=== PATIENT | female | born 1930 | race Caucasian/White ===

== ENCOUNTER → 2016-07-24 | Outpatient (CLI) | payer OTHER ==
--- NOTE | 2016-07-24 18:10 | DX ---
PA and Lateral Chest July 24, 2016 Clinical Indications: Wheezing and respiratory difficulty and an 86-year-old female. Comparison: October 25, 2013. Findings: No focal pulmonary consolidation is identified. Minimal basilar opacities bilaterally are probably atelectasis or scarring. There is hyperexpansion seen, with flattening of the hemidiaphrag ms noted. The heart size and pulmonary vascularity are normal. Pleural surfaces and bony thorax are negative for acute abnormality. Aortic tortuosity is seen, which could reflect arterial hypertensio n. Impressions 1. Suspect basilar atelectasis. 2. Hyperexpansion suggests airways disease/COPD. 3. See above report for additional findings.
== END ==
LOC: CIMAGING 13:07
PROVIDERS: ATTEND Family Medicine
DX: J98.4 Other disorders of lung (principal)
CPT/HCPCS: 71020-PO

== ENCOUNTER → 2017-10-20 | Outpatient (CLI) | payer OTHER | LOC: CIMAGING 15:08 | PROVIDERS: ATTEND Family Medicine | DX: S23.429A Unspecified sprain of sternum, initial encounter (principal); W19.XXXA Unspecified fall, initial encounter | CPT/HCPCS: 71120-PO ==

== ENCOUNTER 2017-10-22 18:45 | Emergency (ER) | payer OTHER ==
[2017-10-22] MEDS ORDERED: NS 1,000 ML IV ONE (18:58)
--- NOTE | 2017-10-22 19:02 | EDPHY ---
H & P Time Seen by Provider: 10/22/17 18:52 HPI/ROS: CHIEF COMPLAINT: Fever, lightheaded, high blood pressure HISTORY OF PRESENT ILLNESS: The patient is an 87-year-old female with a history of hypertension, arthritis and hypothyroidism who was seen by her primary yesterday and had a normal chest x-ray because she had fallen onto her chest 2 weeks ago and had continued moderate chest wall pain. Today she felt chills and noticed a fever of 100.4 at home. She also noticed that her blood pressure was 180/100 and that she felt slightly lightheaded. Her chest pain has remained the same mostly with movement or deep inspiration. No leg swelling. Here in the ER she is also tachycardic. She denies any cardiac or pulmonary history. Here she is afebrile. REVIEW OF SYSTEMS: Constitutional: denies: chills, fever, recent illness, recent injury EENTM: denies: blurred vision, double vision, nose congestion Respiratory: denies: cough, shortness of breath Cardiac: denies: chest pain, irregular heart rate, lightheadedness, palpitations Gastrointestinal/Abdominal: denies: abdominal pain, diarrhea, nausea, vomiting, blood streaked stools Genitourinary: denies: dysuria, frequency, hematuria, pain Musculoskeletal: denies: joint pain, muscle pain Skin: denies: lesions, rash, jaundice, bruising Neurological: denies: headache, numbness, paresthesia, tingling, dizziness, weakness Hematologic/Lymphatic: denies: blood clots, easy bleeding, easy bruising Immunologic/allergic: denies: HIV/AIDS, transplant EXAM: GENERAL: Well-appearing, well-nourished and in no acute distress. HEAD: Atraumatic, normocephalic. EYES: Pupils equal round and reactive to light, extraocular movements intact, sclera anicteric, conjunctiva are normal. ENT: TMs normal, nares patent, oropharynx clear without exudates. Moist mucous membranes. NECK: Normal range of motion, supple without lymphadenopathy or JVD. LUNGS: Breath sounds clear to auscultation bilaterally and equal. No wheezes rales or rhonchi. HEART: Tachycardic without murmurs, rubs or gallops. ABDOMEN: Soft, nontender, normoactive bowel sounds. No guarding, no rebound. No masses appreciated. BACK: No CVA tenderness, no spinal tenderness, step-offs or deformities EXTREMITIES: Normal range of motion, no pitting or edema. No clubbing or cyanosis. NEUROLOGICAL: Cranial nerves II through XII grossly intact. Normal speech, normal gait. 5/5 strength, normal movement in all extremities, normal sensation PSYCH: Normal mood, normal affect. SKIN: Warm, dry, normal turgor, no visible rashes or lesions. Source: Patient Exam Limitations: No limitations - Medical/Surgical History Hx Asthma: No Hx Chronic Respiratory Disease: No Hx Diabetes: No Hx Cardiac Disease: No Hx Renal Disease: No Hx Cirrhosis: No Hx Alcoholism: No Hx HIV/AIDS: No Hx Splenectomy or Spleen Trauma: No Other PMH: HTN, thyroidectomy - Family History Significant Family History: No pertinent family hx - Social History Smoking Status: Former smoker Alcohol Use: Sober Drug Use: None Constitutional: Initial Vital Signs Temperature (C) 37.1 C 10/22/17 19:25 Heart Rate 108 H 10/22/17 19:25 Respiratory Rate 18 10/22/17 19:25 Blood Pressure 198/102 H 10/22/17 19:25 O2 Sat (%) 93 10/22/17 19:25 O2 Delivery Mode Room Air Allergies/Adverse Reactions: No Known Allergies Allergy (Verified 10/22/17 19:23) Home Medications: Medication Instructions Recorded Levothyroxine 05/19/10 Lipitor 10 mg 05/19/10 Lisinopril 05/19/10 Cephalexin [Keflex] 500 mg PO TID #21 cap 10/22/17 Medical Decision Making - Diagnostics EKG Interpretation: An EKG obtained and was read and documented in trace view. Please see trace view for full reading and report. Sinus rhythm, no acute ischemic changes Imaging: Discussed imaging studies w/ radiation protection technician Radiologist ED Course/Re-evaluation: Patient's lab work and imaging are reassuring. She is currently asymptomatic other than states that she had to urinate immediately. Urine sample is pending. She has been afebrile here in the department. I rechecked it now is 37.0. She is tachycardic when I went into the room but her states that she has been sitting around 90 most of her stay. Also her blood pressure had improved temporarily but is now backed up to 220/100. I will treat her with her home medicine 5 mg lisinopril and additionally clonidine. No headache, no chest pain. 10:00 p.m. the patient's blood pressure is improved significantly is now 170/ 80. Heart rate is also improved at 100. Her fevers starting to return and is 37.5. She has been to the bathroom 3 times here in the department. She denies dysuria. Considering her fever at home and urinary frequency will start her on Keflex. 10:20 p.m. the patient is feeling well. Her tachycardia is resolved. I encouraged her to continue taking antipyretics and antibiotics and to rest tomorrow. Her states that they have monitoring equipment at home and can bring her back if her symptoms worsen at all. I did offer admission but they decline. Differential Diagnosis: Partial list of the Differential diagnosis considered include but were not limited to; urinary tract infection, pyelonephritis, sepsis, PE and although unlikely based on the history and physical exam, I also considered pneumonia, meningitis, acute coronary disease. I discussed these differential diagnoses and the plan with the patient as well as the usual and expected course. The patient understands that the diagnosis is provisional and that in medicine we are not always correct and that further workup is often warranted. Usual and customary warnings were given. All of the patient's questions were answered. The patient was instructed to return to the emergency department should the symptoms at all worsen or return, otherwise to followup with the physician as we discussed. - Data Points Laboratory Results: Laboratory Results 10/22/17 19:30 10/22/17 19:30 Medications Given: Discontinued Medications Acetaminophen (Tylenol) 650 mg PO EDNOW ONE Stop: 10/22/17 22:00 Last Admin: 10/22/17 22:04 Dose: 650 mg Cephalexin HCl (Keflex) 500 mg PO EDNOW ONE PRN Reason: Protocol Stop: 10/22/17 21:58 Last Admin: 10/22/17 22:05 Dose: 500 mg Clonidine (Catapres) 0.1 mg PO EDNOW ONE Stop: 10/22/17 20:49 Last Admin: 10/22/17 21:11 Dose: 0.1 mg Sodium Chloride (Ns) 1,000 mls @ 0 mls/hr IV EDNOW ONE; Wide Open PRN Reason: Protocol Stop: 10/22/17 18:59 Last Admin: 10/22/17 19:35 Dose: 1,000 mls Lisinopril (Zestril) 5 mg PO DAILY JOCELIN Stop: 04/20/18 20:59 Last Admin: 10/22/17 21:11 Dose: 5 mg Departure - Departure Disposition: Home, Routine, Self-Care Clinical Impression: Urinary tract infection Qualifiers: Urinary tract infection type: acute cystitis Hematuria presence: without hematuria Qualified Code(s): N30.00 - Acute cystitis without hematuria Condition: Fair Instructions: Urinary Tract Infection in Women (ED) Referrals: Phyllis Baer MD [Primary Care Provider] - As per Instructions Prescriptions: Cephalexin [Keflex] 500 mg PO TID #21 cap
--- NOTE | 2017-10-22 19:11 | CPEKG ---
Heart Rate: 97 RR Interval: 619 P-R Interval: 168 QRSD Interval: 84 QT Interval: 348 QTC Interval: 442 P [place]: 56 QRS [place]: -60 T Wave [place]: 30 EKG Severity - ABNORMAL ECG - EKG Impression: SINUS RHYTHM EKG Impression: LEFT ANTERIOR FASCICULAR BLOCK Electronically Signed By: Ismael Prince 22-Oct-2017 19:12:30
[2017-10-22] MEDS ORDERED: IOPAMIDOL (ISOVUE 370) 100 ML BTL IV ONE (19:24)
[2017-10-22 19:39] LABS: PLATELET COUNT 193 10^3/uL (150-400)
[2017-10-22 19:51] LABS: INR 0.99 (0.83-1.16)
[2017-10-22] MEDS ORDERED: LISINOPRIL 20 MG TAB ONE (21:00)
[2017-10-22] MEDS ORDERED: LISINOPRIL 2.5 MG TAB PO SCH (21:00)
[2017-10-22] MEDS ORDERED: CEPHALEXIN 500 MG CAP PO ONE (21:57)
[2017-10-22] MEDS ORDERED: ACETAMINOPHEN 325 MG TAB PO ONE (21:59)
[2017-10-22 22:54] VITALS: BP 152/90
== END 2017-10-22 22:35 | disposition home or self-care (01) ==
LOC: CED 18:45
DX: N30.00 Acute cystitis without hematuria (principal); B96.89 Other specified bacterial agents as the cause of diseases classified elsewhere; I10 Essential (primary) hypertension; E86.9 Volume depletion, unspecified; Z87.891 Personal history of nicotine dependence
CPT/HCPCS: 71275; 93005; 96360; 99285; Q9967; 80048-PO; 81003-PO; 81015-PO; 83605-PO; 84439-PO; 84443-PO; 84484-PO; 85025-PO; 85610-PO; 85730-PO

== ENCOUNTER 2018-06-18 12:22 | Observation (INO) | payer OTHER ==
[2018-06-18 13:15] LABS: PLATELET COUNT 209 10^3/uL (150-400)
--- NOTE | 2018-06-18 13:23 | EDPHY ---
H & P Time Seen by Provider: 06/18/18 12:27 HPI/ROS: CHIEF COMPLAINT: Mechanical fall, scalp laceration HISTORY OF PRESENT ILLNESS: The patient presents to the ED after a mechanical fall. She fell backward landing on the occiput of her head. She sustained a large scalp hematoma and laceration. She was brought in by paramedics for further evaluation. The patient does not believe she is anticoagulated. She denies any antecedent chest pain, palpitations or shortness of breath. She denies any acute numbness or weakness. She does complain of some mild bilateral cervical neck pain. The patient denies any acute extremity complaints. She complains of a moderate had occipital headache. REVIEW OF SYSTEMS: A comprehensive 10 point review of systems is otherwise negative aside from elements mentioned in the history of present illness. Source: Patient Exam Limitations: No limitations - Medical/Surgical History Hx Asthma: No Hx Chronic Respiratory Disease: No Hx Diabetes: No Hx Cardiac Disease: No Hx Renal Disease: No Hx Cirrhosis: No Hx Alcoholism: No Hx HIV/AIDS: No Hx Splenectomy or Spleen Trauma: No Other PMH: HTN, thyroidectomy - Social History Smoking Status: Former smoker - Physical Exam Exam: General Appearance: Alert, no distress Head: Large occipital hematoma with associated laceration Eyes: Pupils equal, round, reactive ENT, Mouth: No hemotympanum, no oral trauma Neck: In cervical collar, mild midline tenderness to palpation with Respiratory: No chest wall tender, no subcutaneous air, lungs clear bilaterally Cardiovascular: Regular rate and rhythm Abdomen: Abdomen is soft and nontender, pelvis stable Skin: No lacerations, No abrasion Back: No midline T/L/S pain Extremities: Nontender, full range of motion Neurological: A&Ox3, normal motor function, normal sensory exam Allergies/Adverse Reactions: No Known Allergies Allergy (Verified 10/22/17 19:23) Home Medications: Medication Instructions Recorded Acetaminophen [Tylenol ES 500 mg 1,000 mg PO BID 06/18/18 (*)] Amitriptyline HCl [Elavil 10 mg 10 mg PO HS 06/18/18 (*)] Atorvastatin Calcium [Lipitor 20 20 mg PO HS 06/18/18 mg (*)] C/E/Zn/Cu/OM3/DHA/EPA/LUT/ZEAX 1 each PO BID 06/18/18 [Preservision Areds 2 Softgel] Ibuprofen [Motrin (*)] 200 mg PO Q6 PRN 06/18/18 Levothyroxine [Synthroid 112 mcg 112 mcg PO DAILY06 06/18/18 (*)] Lisinopril [Lisinopril] 20 mg PO HS 06/18/18 Medical Decision Making - Diagnostics EKG Interpretation: EKG: Complete interpretation has been separately recorded in the [facility] archive. Summary impression: Sinus rhythm, rate 88, no ischemic changes noted Imaging Results: Imaging Impressions Cervical Spine CT 06/18/18 12:31 Impression: 1. There is a superior left posterior parietal subgaleal (deep scalp) hematoma, with no acute intra or extra-axial blood observed. This resides adjacent to a scalp laceration. 2. Moderately advanced senescent features, with no acute intracranial abnormality identified on this unenhanced CT evaluation. 3. There is a 1.2 cm calcification near the left superior vertex, likely representing a small benign meningioma. UNENHANCED CT SCAN OF THE CERVICAL SPINE Technique: A multidetector unenhanced helical CT scan was obtained from the clivus caudally through the upper thoracic spine, with images reformatted at 0.625 mm and 1.25 mm increments, and are reviewed in soft tissue, bone, and lung windows. Parasagittal and paracoronal reconstructed images are reviewed on the workstation. The DFOV is 25.0 cm. A dose reduction protocol was used. Given the history of trauma, the radiologist reviewed the osseous images in a 3D format on the computer workstation using [employer] software. Findings: The cervical vertebral body heights, posterior alignments, and the disk spaces are preserved. There is no acute fracture, or facet malalignment. Incidental note is made of a benign sclerotic bone island associated with the right C7 lamina. The interspinous distances are normal. The craniocervical junction is normal. The predental space, and the atlantoaxial lateral mass alignment is normal. There is no prevertebral or epidural hematoma identified. The prevertebral soft tissues are normal. There is some very mild centrilobular emphysema in the lung apices, with no focal infiltrate or pneumothorax. At the C1-C2 level, there is degenerative narrowing of the predental space with adjacent subchondral sclerosis and geode formation with osteophytes. There is no AP canal stenosis. At the C2-C3 level, there is severe right and moderate left facet hypertrophy. The central canal neural foramina still remain patent. At the C3-C4 level, there is severe right and moderate left facet hypertrophy. Uncovertebral degenerative spondylosis results in severe right neural foraminal stenosis and mild left neural foraminal stenosis. The central canal remains patent. At the C4-C5 level, there is severe right and luvbdqvv-[id number] left facet hypertrophy. Uncovertebral degenerative spondylosis results in moderate-to- severe right neural foraminal stenosis, and minimal left neural foraminal stenosis. The central canal remains patent. At the C5-C6 level, there is ktekiilm-[id number] bilateral facet hypertrophy. There is left-sided uncovertebral degenerative spondylosis, resulting in mild-to -moderate left neural foraminal stenosis. There is a mild degree of right neural foraminal stenosis. The central canal remains patent. At the C6-C7 level, there is bbkaxwic-rl-abvtmj bilateral facet hypertrophy. There is also some uncovertebral degenerative spondylosis, resulting in mild bilateral neural foraminal stenoses. At the C7-T1 level, there is no central canal or neural foraminal stenosis. There is moderate right and mild left facet hypertrophy. Impression: Multilevel degenerative changes, with no acute cervical osseous abnormality. If there is further clinical concern regarding the patient's symptoms, correlative MR imaging could be considered, if otherwise not contraindicated. Findings were discussed with Manjeet Garcia MD at 13:32, on 06/18/2018. Head CT 06/18/18 12:31 Impression: 1. There is a superior left posterior parietal subgaleal (deep scalp) hematoma, with no acute intra or extra-axial blood observed. This resides adjacent to a scalp laceration. 2. Moderately advanced senescent features, with no acute intracranial abnormality identified on this unenhanced CT evaluation. 3. There is a 1.2 cm calcification near the left superior vertex, likely representing a small benign meningioma. UNENHANCED CT SCAN OF THE CERVICAL SPINE Technique: A multidetector unenhanced helical CT scan was obtained from the clivus caudally through the upper thoracic spine, with images reformatted at 0.625 mm and 1.25 mm increments, and are reviewed in soft tissue, bone, and lung windows. Parasagittal and paracoronal reconstructed images are reviewed on the workstation. The DFOV is 25.0 cm. A dose reduction protocol was used. Given the history of trauma, the radiologist reviewed the osseous images in a 3D format on the computer workstation using [employer] software. Findings: The cervical vertebral body heights, posterior alignments, and the disk spaces are preserved. There is no acute fracture, or facet malalignment. Incidental note is made of a benign sclerotic bone island associated with the right C7 lamina. The interspinous distances are normal. The craniocervical junction is normal. The predental space, and the atlantoaxial lateral mass alignment is normal. There is no prevertebral or epidural hematoma identified. The prevertebral soft tissues are normal. There is some very mild centrilobular emphysema in the lung apices, with no focal infiltrate or pneumothorax. At the C1-C2 level, there is degenerative narrowing of the predental space with adjacent subchondral sclerosis and geode formation with osteophytes. There is no AP canal stenosis. At the C2-C3 level, there is severe right and moderate left facet hypertrophy. The central canal neural foramina still remain patent. At the C3-C4 level, there is severe right and moderate left facet hypertrophy. Uncovertebral degenerative spondylosis results in severe right neural foraminal stenosis and mild left neural foraminal stenosis. The central canal remains patent. At the C4-C5 level, there is severe right and hzysosyc-dc-sxwixy left facet hypertrophy. Uncovertebral degenerative spondylosis results in moderate-to- severe right neural foraminal stenosis, and minimal left neural foraminal stenosis. The central canal remains patent. At the C5-C6 level, there is exawyusy-ki-qesgyp bilateral facet hypertrophy. There is left-sided uncovertebral degenerative spondylosis, resulting in mild-to -moderate left neural foraminal stenosis. There is a mild degree of right neural foraminal stenosis. The central canal remains patent. At the C6-C7 level, there is lsbaxcaa-ok-kxkkpd bilateral facet hypertrophy. There is also some uncovertebral degenerative spondylosis, resulting in mild bilateral neural foraminal stenoses. At the C7-T1 level, there is no central canal or neural foraminal stenosis. There is moderate right and mild left facet hypertrophy. Impression: Multilevel degenerative changes, with no acute cervical osseous abnormality. If there is further clinical concern regarding the patient's symptoms, correlative MR imaging could be considered, if otherwise not contraindicated. Findings were discussed with Manjeet Garcia MD at 13:32, on 06/18/2018. Procedures: Procedure: Laceration repair. Verbal consent was obtained from the patient. The 2 cm laceration on the scalp was anesthetized using lidocaine with epinephrine. The wound was irrigated per protocol, draped and explored to its base with a gloved finger. The wound was repaired with multiple london and a purse string stitch secondary to some superficial arterial bleeding. The wound repair was simple. The procedure was performed by myself. Procedure: Laceration #2 repair. Verbal consent was obtained from the patient. The 5 cm laceration on the posterior scalp was anesthetized using lidocaine with epinephrine. The wound was irrigated per protocol, draped and explored to its base with a gloved finger. The wound was repaired with london. The wound repair was simple. The procedure was performed by myself. ED Course/Re-evaluation: Patient presents to the ED after mechanical fall which resulted in into large occipital scalp lacerations. The patient was taken for CT scan of the head which demonstrated no evidence of an intracranial hemorrhage or cervical spine fracture. The patient returned and had her lacerations repaired by myself. Shortly after laceration repair she was observed to have fairly significant syncopal event vasovagal episode. The patient did have significant blood loss earlier today. She recovered from her vasovagal episode fairly quickly. A L of normal saline was hung. Her EKG demonstrates no evidence of arrhythmia. Given the patient's age I do feel she should be admitted to the hospital for observation this evening in the setting of her syncope. Consultation was made with the hospitalist service. Dr. Kwon from the trauma service was notified will consult on the patient. Differential Diagnosis: Differential diagnosis considered includes intracranial hemorrhage, cervical spine fracture, scalp laceration, arrhythmia, critical anemia, vasovagal episode - Data Points Laboratory Results: Laboratory Results 06/18/18 13:03 06/18/18 13:03 06/18/18 06/18/18 13:03 13:03 WBC 7.78 10^3/uL 10^3/uL (3.80-9.50) RBC 4.97 10^6/uL 10^6/uL (4.18-5.33) Hgb 15.7 g/dL g/dL (12.6-16.3) Hct 46.2 % % (38.0-47.0) MCV 93.0 fL fL (81.5-99.8) MCH 31.6 pg pg (27.9-34.1) MCHC 34.0 g/dL g/dL (32.4-36.7) RDW 13.8 % % (11.5-15.2) Plt Count 209 10^3/uL 10^3/uL (150-400) MPV 10.1 fL fL (8.7-11.7) Neut % (Auto) 72.4 % % (39.3-74.2) Lymph % (Auto) 18.8 % % (15.0-45.0) Frederick % (Auto) 6.4 % % (4.5-13.0) Eos % (Auto) 0.9 % % (0.6-7.6) Baso % (Auto) 0.5 % % (0.3-1.7) Nucleat RBC Rel Count 0.0 % % (0.0-0.2) Absolute Neuts (auto) 5.63 10^3/uL 10^3/uL (1.70-6.50) Absolute Lymphs (auto) 1.46 10^3/uL 10^3/uL (1.00-3.00) Absolute Monos (auto) 0.50 10^3/uL 10^3/uL (0.30-0.80) Absolute Eos (auto) 0.07 10^3/uL 10^3/uL (0.03-0.40) Absolute Basos (auto) 0.04 10^3/uL 10^3/uL (0.02-0.10) Absolute Nucleated RBC 0.00 10^3/uL 10^3/uL (0-0.01) Immature Gran % 1.0 % % (0.0-1.1) Immature Gran # 0.08 10^3/uL 10^3/uL (0.00-0.10) Sodium 136 mEq/L mEq/L (135-145) Potassium 4.0 mEq/L mEq/L (3.5-5.2) Chloride 102 mEq/L mEq/L (97-110) Carbon Dioxide 21 mEq/l L mEq/l (22-31) Anion Gap 13 mEq/L mEq/L (6-14) BUN 18 mg/dL mg/dL (7-23) Creatinine 0.6 mg/dL mg/dL (0.6-1.0) Estimated GFR > 60 Glucose 116 mg/dL H mg/dL (70-100) Calcium 9.3 mg/dL mg/dL (8.5-10.4) Medications Given: Discontinued Medications Sodium Chloride (Ns) 1,000 mls @ 0 mls/hr IV EDNOW ONE; Wide Open PRN Reason: Protocol Stop: 06/18/18 14:14 Last Admin: 06/18/18 14:13 Dose: 1,000 mls Departure - Departure Disposition: [facility] In[facility] Acute Clinical Impression: Syncope Scalp laceration Qualifiers: Encounter type: initial encounter Qualified Code(s): S01.01XA - Laceration without foreign body of scalp, initial encounter Condition: Good
--- NOTE | 2018-06-18 13:23 | CPEKG ---
Test Reason : OPEN Blood Pressure : / mmHG Vent. Rate : 088 BPM Atrial Rate : 088 BPM P-R Int : 164 ms QRS Dur : 088 ms QT Int : 386 ms P-R-T Axes : 068 -52 013 degrees QTc Int : 467 ms Sinus rhythm Inferior infarct, old Confirmed by Manjeet Garcia ([id number]) on 06/18/2018 1:23:35 PM Referred By: Confirmed By:Manjeet Garcia
[2018-06-18] MEDS ORDERED: NS 1,000 ML IV ONE (14:13)
--- NOTE | 2018-06-18 14:54 | PDGENHP ---
History and Physical History and Physical: Chief complaint: fall History of present illness: The patient is an 87-year-old female with a history of mechanical fall 1 month ago resulting in rib fractures and thoracic muscle strain who fell earlier today. She was using a cane to enter her house, missed a step, and fell backwards landing on concrete. She denied loss of consciousness. She felt mildly confused, but was able to answer questions appropriately when paramedics arrived. She sustained a large hematoma and laceration in the occipital area which was drained and stapled in the ED. Around this time, she was noted to have syncopal event in the ED which lasted 2 minutes. Afterward, she was not confused and knew what was going on. She admits she has been under a lot of stress recently and has been very anxious/upset/ angry about having fallen today. She admits to having a headache at this time, but it is not a migraine. She has some muscular pain throughout her back and right hip. She does not have any numbness or tingling or weakness in her extremities. Past medical history: Hypothyroidism, HTN, migraines, osteoporosis. Past surgical history: D&C, subtotal thyroidectomy, cataracts. Medications: Amitriptyline, atorvastatin, ferrous sulfate, Flonase, levothyroxine, lisinopril, ProAir, calcium, Tylenol, vitamin D3. Please see medication reconciliation form for dosages. Allergies: NKDA. Cats. Social history: Former smoker. 1 glass wine daily with dinner. Denies drugs. , lives w/ . Recently moved to a new home in [place]. Retired - credit office manager. Family history: Sister is in a hospital in [place] currently - valvular disease, stroke in the eye, Parkinsons disease. PCP: Dr. Meghann Baer - [facility] Review of systems: 10 point review of systems was conducted and is negative except per HPI Physical exam: Vitals: Reviewed General: The patient is an elderly female who is A&Ox3 and in no acute distress. HEENT: normocephalic, extraocular movements intact, conjunctivae clear, PERRL. Nares and oral mucosa pink and moist. +laceration noted on occiput w/ 10 fresh london. Scalp stained with blood. Neck: trachea midline, no visible masses. CV: +S1/S2, reg rate and rhythm. No murmurs/rubs/gallops. Plus two pedal pulses bilaterally. Resp: unlabored breathing, lungs clear to auscultation w/o rales, rhonchi, or wheezing. Abd: soft and nondistended, bowel sounds present. Nontender to palpation throughout. Musculoskeletal: Moving all 4 extremities equally. Normal muscle tone and bulk. Neuro: cranial nerves II XII grossly intact. Intact gross motor and sensory function. Psych: appropriate mood/affect. Skin: No rash. : no suprapubic tenderness or CVA tenderness. Heme/lymph: No peripheral edema. Labs: WBC 7.78, hemoglobin 15.7 --> 11.9, platelets 209. BMP within normal limits. Other Data: 1) Head CT without contrast: There is a superior left posterior parietal subgaleal deep scalp hematoma, with no acute intra or extra-axial blood observed. This resides adjacent to a scalp laceration. Moderately advanced senescent features, with no acute intracranial abnormality identified on this unenhanced CT evaluation. There is a 1.2 cm calcification near the left superior vertex, likely representing a small benign meningioma. 2) CT scan of the C-spine without contrast: Multilevel degenerative changes, with no acute cervical osseous abnormality. 3) EKG: Normal sinus rhythm, rate 88, normal axis, QTC 467, age-indeterminate inferior infarct. Personally interpreted. Impression and plan: Large scalp hematoma, s/p drainage Scalp laceration Mechanical fall Syncope, likely vasovagal Ddx - orthostatic, cardiogenic, neurogenic Generalized weakness Gait abnormality Recent rib fractures Recent R sided back/flank muscle strain, 2/2 mechanical fall -Monitor on telemetry overnight. -Check AM labs. -PT/OT eval in AM. -Discussed doing echo to eval syncope -- pt denies Hx heart issues and on exam there were no murmurs. Events surrounding syncopal event suggest vasovagal and orthostatic syncope. Pt would like to hold off on echo at this time. She would like to d/w her tonight and may consider to do the test either tomorrow or as an outpatient. -prn analgesics. -Code status - DNR. -Observation status for 1 anticipated midnight in the hospital to eval for syncope.
[2018-06-18] MEDS ORDERED: ACETAMINOPHEN 325 MG TAB PO PRN (16:04)
[2018-06-18] MEDS ORDERED: HYDROmorphONE/DILAUDID 2 MG TAB PO PRN (16:04)
[2018-06-18] MEDS ORDERED: ONDANSETRON 4 MG/2 ML VIAL IVP PRN (16:04)
[2018-06-18] MEDS ORDERED: ONDANSETRON DISINTEGRATING 4 MG TAB PO PRN (16:04)
[2018-06-18] MEDS ORDERED: NS 1,000 ML IV SCH (16:15)
[2018-06-18] MEDS ORDERED: ACETAMINOPHEN/ASA/CAFFEINE 1 EACH TAB PO PRN (19:43)
[2018-06-18] MEDS: ACETAMINOPHEN 500 MG TAB PO SCH (20:16)
[2018-06-18] MEDS: PRESERVISION AREDS2 FORMULA EYE VIT 1 EACH PO SCH (20:17)
[2018-06-18] MEDS ORDERED: AMITRIPTYLINE HCL 10 MG TAB PO SCH (21:00)
[2018-06-18] MEDS ORDERED: LISINOPRIL 20 MG TAB PO SCH (21:00)
[2018-06-18] MEDS ORDERED: ATORVASTATIN CALCIUM 20 MG TAB PO SCH (21:00)
[2018-06-19 04:45] LABS: INR 1.11 (0.83-1.16); PROTIME(PATIENT) 14.5 SEC (12.0-15.0)
[2018-06-19 04:52] LABS: PLATELET COUNT 190 10^3/uL (150-400)
[2018-06-19] MEDS ORDERED: LEVOTHYROXINE 112 MCG TAB PO SCH (06:00)
[2018-06-19] MEDS: ACETAMINOPHEN 500 MG TAB PO SCH (10:17)
[2018-06-19] MEDS: PRESERVISION AREDS2 FORMULA EYE VIT 1 EACH PO SCH (10:18)
[2018-06-19 12:16] VITALS: BP 144/73
--- NOTE | 2018-06-19 13:09 | GCON ---
TRAUMA CONSULT/HISTORY AND PHYSICAL Dictated by CAROLINA Vasquez student, under the supervision of Dr. Jamee Kwon MD. CHIEF COMPLAINT: Mechanical fall. HISTORY OF PRESENT ILLNESS: Phoebe is a pleasant 87-year-old female who fell earlier today. She was using a cane to enter her house when she missed a step and fell backwards, landing on concrete. She struck her occiput on the concrete. She denied loss of consciousness, although did feel mildly confus ed. She was brought to this emergency department via ambulance for evaluation. While in the emergency department, she was noted to have a syncopal event lasting 2 minutes. After this event, she was not confused and was oriented and appropriate. She denies any current headaches, vision changes, dizzines s, nausea. She does not have any numbness or tingling and reports no weakness in her extremities. She has no other complaints at this time. PAST MEDICAL HISTORY: Hypothyroidism, hypertension, migraines, osteoporosis. PAST SURGICAL HISTORY: D and C, subtotal thyroidectomy, cataracts. MEDICATION: Amitriptyline, atorvastatin, ferrous sulfate, Flonase, levothyroxine, lisinopril, ProAir , calcium, Tylenol, vitamin D3. ALLERGIES: No known drug allergies. The patient is allergic to cats. SOCIAL HISTORY: Former smoker. Occasional alcohol. Denies drugs. , lives with in [facility]. FAMILY HISTORY: Parkinson's, cardiac disease. REVIEW OF SYSTEMS: A 10-point review of systems was conducted and negative except as noted in HPI. PHYSICAL EXAM: VITAL SIGNS: Stable. GENERAL: Elderly female who is alert and oriented, in no acute d istress. HEENT: Normocephalic. PERRL. No rhinorrhea or otorrhea. Laceration noted on occiput with [address] Scalp and hair stained with blood, no active bleeding. NECK: Trachea midline. CARDI OVASCULAR: Regular rate and rhythm. No murmurs, rubs or gallops. No peripheral edema. RESPIRATION: Emma ngs clear to auscultation bilaterally. No increased work of breathing. ABDOMEN: Soft, nondistended. B owel sounds present. Nontender. MUSCULOSKELETAL: Moving all 4 extremities equally. No strength defici t appreciated. NEURO: Intact motor and sensory function. PSYCH: Appropriate mood and affect. SKIN: Pi nk, warm and dry. IMPRESSION AND PLAN: An 87-year-old female with scalp laceration and syncopal episode. She will be m onitored overnight due to her recent syncope in the emergency department. She does complain of some o ccipital tenderness but is otherwise asymptomatic and in good spirits. She will likely discharge merari rrow, 06/19/2018. She will follow up in approximately 10 days to have her london removed. Instructio ns were given for wound aftercare. /[id number]/MODL
--- NOTE | 2018-06-19 13:29 | PDDCSUM ---
Discharge Summary Discharge Summary: Date of Admission: 06/18/2018 Date of Discharge: 06/19/2018 Consults: Trauma Surgery Procedures Head/Cervical Spine CT Followup: PCP, Surgery Hospital Course Problem List: Impression and plan: Large scalp hematoma, s/p drainage and repear Scalp laceration Mechanical fall Syncope, likely vasovagal Ddx - orthostatic, cardiogenic, neurogenic Generalized weakness Gait abnormality Recent rib fractures Recent R sided back/flank muscle strain, 2/2 mechanical fall Patient observed overnight without any acute events. Hgb decreased from 15 on admission to 11 overnight, in setting of blood loss from scalp hematoma, laceration repair. Recommended repeat CBC within next week by PCP. Seen by PT/ OT, recommended home PT. Time spent on discharge was >35 minutes with >50% of time spent on patient education and counseling.
--- NOTE | 2018-06-19 13:30 | PDIAF ---
- Diagnosis Diagnosis: Mechanical fall, scalp hematoma Code Status: Do Not Resuscitate - Medication Management Discharge Medications: electronically signed and located in the Home Medication List. - Orders Services needed: Home Care, Physical Therapy Home Care Face to Face: I certify that this patient was under my care and that I had the required [id number] encounter meeting the encounter requirements on the discharge day. My findings support the fact that the patient is homebound as defined in Home Care Face to Face Continued: CMS Chapter 7 Medicare Benefits Manual 30.1.1 , The condition of the patient is such that there exists a normal inability to leave home and consequently, leaving home would require a considerable and taxing effort. Additional Instructions: May wash hair. Staple removal in around 06/26-07/03 - Follow Up Care Current Providers and Referrals: Jamee Kwon MD [Medical Doctor] - follow up in 10 days (for staple removal) Patient,NotPresent [Unknown] - As per Instructions
--- NOTE | 2018-06-19 15:16 | ASMTLACE ---
LACE Length of stay for Answers: Less than 1 day current admission Acuity / Level of Answers: No Care: Did the patient have an inpatient admission? Comorbidities - select Answers: Other Notes: hypothyroidis, HTN, teresa mejias all that apply rossi, osteoporosis # of Emergency department Answers: 1-2 visits in the last 6 months Score: 2 Date Signed: 06/19/2018 02:59 PM Electronically Signed By:Heydi Cope RN
--- NOTE | 2018-06-19 15:17 | ASMTDCNOTE ---
Case Management Discharge Discharge Order Complete? Answers: Yes Patient to Obtain Answers: via Family Medications Transportation Arranged Answers: Family/Friends Faxed Final Orders Answers: Yes Notes: [facility] home [facility] Agency/Facility Transfer Answers: Yes Notes: [facility] home care Report Printed & Faxed to Receiving Agency Family Notified Answers: Yes Notes: in room Discharge Comments Notes: 06/19/2018 Case Management Note Met w/pt and to discuss d/c needs. Both in agreement for need of home health PT. Faxed referrals to multiple agencies due to insurance. [facility] accepted pt. ANIVAL signed. has obtained a 4 wheel walker. Case Management d/c poc: Home with [facility] PT Date Signed: 06/19/2018 03:03 PM Electronically Signed By:Heydi Cope RN
--- NOTE | 2018-06-19 15:27 | ASDISCHSUM ---
Discharge Information Plan Status:Home with Home Health Medically Cleared to Leave:06/18/2018 Discharge Date:06/18/2018 CM D/C Disposition:Home Health Service ADT D/C Disposition: Projected Discharge Date:06/19/2018 11:00 AM Transportation at D/C:Family Discharge Delay Reason: Follow-Up Date:06/19/2018 11:00 AM Discharge Slot: Final Diagnosis: Placement Information Referral Type:*Home Health Care Services Referral ID:[id number] Provider Name:[facility] Address 1:[address] [place] [address] Address 2: City:[place] Selection Factors: State:[place] Patient Contact Information Contact Name:EMELIA Relationship: Address:[address] City:[place] Alternate Phone: State/Zip Code:[place] [address] Email: Financial Information Financial Class:Medicare Advantage Plans Primary Plan Desc:AARP MEDICARE COMPLETE Primary Plan Number:[id number] Secondary Plan Desc: Secondary Plan Number: Assessment Information LACE LACE Length of stay for Answers: Less than 1 day current admission Acuity / Level of Answers: No Care: Did the patient have an inpatient admission? Comorbidities - select Answers: Other Notes: hypothyroidis, HTN, teresa mejias all that apply rossi, osteoporosis # of Emergency department Answers: 1-2 visits in the last 6 months Score: 2 Date Signed: 06/19/2018 02:59 PM Electronically Signed By:Heydi Cope RN Case Management Discharge Plan Note Case Management Discharge Discharge Order Complete? Answers: Yes Patient to Obtain Answers: via Family Medications Transportation Arranged Answers: Family/Friends Faxed Final Orders Answers: Yes Notes: [facility] Agency/Facility Transfer Answers: Yes Notes: [facility] home care Report Printed & Faxed to Receiving Agency Family Notified Answers: Yes Notes: in room Discharge Comments Notes: 06/19/2018 Case Management Note Met w/pt and to discuss d/c needs. Both in agreement for need of home health PT. Faxed referrals to multiple agencies due to insurance. [facility] accepted pt. FLORIAN signed. has obtained a 4 wheel walker. Case Management d/c poc: Home with [facility] Date Signed: 06/19/2018 03:03 PM Electronically Signed By:Heydi Cope RN Intervention Information Intervention Type:*FLORINA-Signed Date of Service:06/19/2018 03:26 PM Patient Type:Observation Staff Member:ROSS Cope, Heydi Hours: Discipline: Severity: Comment:
--- NOTE | 2018-06-21 13:55 | CPEKG ---
Test Reason : OPEN Blood Pressure : / mmHG Vent. Rate : 076 BPM Atrial Rate : 075 BPM P-R Int : 168 ms QRS Dur : 096 ms QT Int : 421 ms P-R-T Axes : 065 -44 022 degrees QTc Int : 474 ms Sinus rhythm Confirmed by Manjeet Garcia ([id number]) on 06/21/2018 1:55:03 PM Referred By: Confirmed By:Manjeet Garcia
== END 2018-06-19 16:10 | disposition home or self-care (01) ==
LOC: EDUNIT# → UNDOADMOB 14:35 → F2W 16:20
PROVIDERS: ADMIT Internal Medicine; ATTEND Internal Medicine
PROC: 0HQ0XZZ Repair Scalp Skin, External Approach (ICD-10-PCS; principal; 2018-06-18)
DX: R55 Syncope and collapse (principal); S01.01XA Laceration without foreign body of scalp, initial encounter; W18.30XA Fall on same level, unspecified, initial encounter; E86.0 Dehydration; R53.1 Weakness; R26.9 Unspecified abnormalities of gait and mobility; M54.9 Dorsalgia, unspecified; M25.551 Pain in right hip; M81.8 Other osteoporosis without current pathological fracture; I10 Essential (primary) hypertension; Z87.891 Personal history of nicotine dependence; Z66 Do not resuscitate
CPT/HCPCS: 12002; 70450; 72125; 92523; 93005; 96360; 97116; 97161; 97165; 99285; G0378; G8978; G8979; G8987; G8988; G9168; G9169; G9170; 82435-PO; 82565-PO; 82947-PO; 84132-PO; 84295-PO; 84520-PO; 85014-PO; G0390

== ENCOUNTER → 2018-07-15 | Outpatient (CLI) | payer OTHER | LOC: CIMAGING 13:23 | PROVIDERS: ATTEND Family Medicine | DX: S32.592A Other specified fracture of left pubis, initial encounter for closed fracture (principal); W19.XXXA Unspecified fall, initial encounter; M16.12 Unilateral primary osteoarthritis, left hip; M51.36 Other intervertebral disc degeneration, lumbar region | CPT/HCPCS: 73502-PO ==

== ENCOUNTER → 2018-08-19 | Outpatient (CLI) | payer OTHER | LOC: BMCIMAGING 14:57 | PROVIDERS: ATTEND Orthopaedic Surgery | DX: Z09 Encounter for follow-up examination after completed treatment for conditions other than malignant neoplasm (principal); S32.592D Other specified fracture of left pubis, subsequent encounter for fracture with routine healing ==

== ENCOUNTER → 2018-10-01 | Outpatient (CLI) | payer OTHER | LOC: BMCIMAGING 09:42 | PROVIDERS: ATTEND Orthopaedic Surgery | DX: M16.11 Unilateral primary osteoarthritis, right hip (principal) ==

== ENCOUNTER → 2018-12-28 | Outpatient (CLI) | payer OTHER | LOC: FIMAGING 14:04 ==